=== PATIENT | male | born 1945 | race Caucasian/White ===

== ENCOUNTER 2016-10-24 14:42 | Inpatient (IN) | payer MEDICARE, OTHER ==
[~2016-10-24] VITALS: Ht 175.3 cm; Wt 78.8 kg
[~2016-10-24 14:42] MED LIST: ACET-2247 PO; ACET-66 PO; ASPI81 PO; BENA10TA3 PO; BISA10S PR; DIVA500T52 PO; DSS100 PO; ETAN25I SQ; FISH1CAP27 PO; FOLI1 PO; HYDR-3965 PO; INSNOV SQ; LACT1CAP38 PO; METH2.5 PO; MOM30 PO; ONDA4 PO; OS500 PO; SITA100 PO; TAMS0.4C32 PO; VITAD1000 PO; XALA2.5OS OU; ZOLP5 PO; ZOSY3375FZ IV; [UNRECOGNIZED DRUG - CODE] IV
[2016-10-24 15:01] LABS: GLUCOSE,POINT OF CARE 190 MG/DL (70-110)
[2016-10-24] MEDS ORDERED: ACETAMINOPHEN 500 MG TABLET PO ONE (15:15)
[2016-10-24 15:37] LABS: BASOPHILS % (AUTO) 0.8 % (0.0-2.0); EOSINOPHILS % (AUTO) 0.1 % (1.0-6.0); HEMATOCRIT 36.4 % (41-53); HEMOGLOBIN 12.1 g/dL (13.5-17.5); LYMPHOCYTES # (AUTO) 1.2 K/uL (1.0-4.8); LYMPHOCYTES % (AUTO) 21.3 % (22.0-44.0); MEAN CORPUSCULAR HEMOGLOBIN 29.1 pg (26.0-34.0); MEAN CORPUSCULAR HGB CONC 33.2 G/dL (31.0-37.0); MEAN CORPUSCULAR VOLUME 88 fL (80-100); MONOCYTES # (AUTO) 0.5 K/uL (0.1-1.0); MONOCYTES % (AUTO) 9.4 % (2.0-9.0); NEUTROPHILS % (AUTO) 68.4 % (40.0-70.0); PLATELET COUNT (AUTO) 110 K/uL (150-450); RED BLOOD CELL COUNT(AUTO) 4.15 MIL/uL (4.50-5.90); RED CELL DISTRIBUTION WIDTH 14.7 % (11.5-14.5); WHITE BLOOD COUNT (AUTO) 5.8 K/uL (4.5-11.0)
[2016-10-24 15:44] LABS: ANION GAP 8 mmol/L (8-16); CALCIUM, TOTAL 9.2 mg/dL (8.8-10.5); CARBON DIOXIDE 29 mmol/L (22-29); CHLORIDE 101 mmol/L (98-107); CREATININE 1.51 mg/dL (0.60-1.30); GLOMERULAR FILTR. RATE CALC 46 mL/min (>60); POTASSIUM 4.4 mmol/L (3.5-5.1); SODIUM SERUM 138 mmol/L (136-145); UREA NITROGEN, BLOOD 28 mg/dL (7-18)
[2016-10-24 15:58] LABS: B-TYPE NATRIURETIC PEPTIDE 612 pg/mL (0-100)
[2016-10-24 16:18] LABS: ALANINE AMINOTRANSFERASE 22 U/L (12-78); ALBUMIN 2.8 g/dL (3.4-5.0); ASPARTATE AMINOTRANSFERASE 36 U/L (15-37); BILIRUBIN,TOTAL 0.2 mg/dL (0.1-1.0); CREATINE KINASE MB 3.3 ng/mL (0-5); CREATINE KINASE, TOTAL 236 U/L (39-308); VALPROIC ACID 44 mcg/mL (50-100)
[2016-10-24] MEDS ORDERED: LEVOFLOXACIN 750 MG/D5% WATER 150 ML IV ONE (17:00)
[2016-10-24] MEDS ORDERED: IPRATROPIUM BROMIDE 0.5 MG/2.5 ML NEB SOLUTION NEB ONE (17:00)
[2016-10-24] MEDS ORDERED: ALBUTEROL SULFATE 2.5 MG/0.5 ML NEB SOLUTION NEB ONE (17:00)
[2016-10-24 17:15] LABS: INFLUENZA TYPE B NEGATIVE FOR TYPE B (NEGATIVE)
[2016-10-24 19:54] LABS: APPEARANCE,URINE CLEAR (CLEAR); GLUCOSE, URINE (UA) NEGATIVE (NEGATIVE); KETONES,URINE TRACE mg/dL (NEGATIVE); LEUKOCYTE ESTERASE ,URINE NEGATIVE (NEGATIVE); OCCULT BLOOD,URINE MODERATE (NEGATIVE); PH,URINE 5.5 (5.0-8.0); PROTEIN,URINE NEGATIVE (NEGATIVE)
[2016-10-24 19:57] LABS: ADD UA MICROSCOPIC YES
[2016-10-24 20:13] LABS: SQUAMOUS EPITHELIAL CELL,UR Rare /LPF (None Seen)
[2016-10-24 20:15] LABS: WBC,URINE 0-2 /HPF (0-5)
[2016-10-24 22:46] LABS: GLUCOSE,POINT OF CARE 106 MG/DL (70-110)
[2016-10-24 23:21] VITALS: BP 148/63
[2016-10-25] MEDS ORDERED: ACETAMINOPHEN 325 MG TABLET PO PRN (01:30)
[2016-10-25] MEDS ORDERED: GuaiFENesin/D-METHORPHAN [SUGAR-FREE] 200-20MG/10 ML SYRUP UDCUP PO PRN ×2 (01:30→02:00)
[2016-10-25 04:13] VITALS: BP 136/57
[2016-10-25 07:39] VITALS: BP 121/66
[2016-10-25] MEDS ORDERED: BISACODYL 10 MG RECTAL RECTAL SUPPOSITORY PR PRN (08:45)
[2016-10-25] MEDS ORDERED: [UNRECOGNIZED DRUG - OTHER] SQ SCH (08:45)
[2016-10-25] MEDS ORDERED: MAGNESIUM HYDROXIDE SUSPENSION 30 ML UDCUP PO PRN (08:45)
[2016-10-25] MEDS: ASPIRIN 81 MG CHEWABLE TABLET PO SCH ×2 (09:00→12:59)
[2016-10-25] MEDS ORDERED: METHOTREXATE SODIUM 2.5 MG TABLET PO SCH (09:00)
[2016-10-25] MEDS ORDERED: DIVALPROEX SODIUM 500 MG ER TABLET PO SCH (09:00)
[2016-10-25] MEDS ORDERED: SODIUM CHLORIDE 0.9% 100 ML ONE (09:11)
[2016-10-25] MEDS ORDERED: IOVERSOL 320 MG/ML 100 ML VIAL ONE (09:11)
[2016-10-25] MEDS ORDERED: DEXTROSE 50%-WATER 25 GM/50 ML SYRINGE IVP PRN (10:00)
[2016-10-25] MEDS: SODIUM CHLORIDE 0.9% 1,000 ML IV SCH ×2 (10:44→20:47)
[2016-10-25] MEDS: CefTRIAXone 1 GM/DEXTROSE 50 ML IV SCH (10:44)
[2016-10-25] MEDS: LATANOPROST 0.005% 2.5 ML OPHTHALMIC SOLUTION OU SCH (10:45)
[2016-10-25] MEDS: TAMSULOSIN HCL 0.4 MG CAPSULE PO SCH ×2 (10:45→20:47)
[2016-10-25] MEDS: DOCUSATE SODIUM 100 MG CAPSULE PO SCH ×3 (10:45→20:47)
[2016-10-25] MEDS: FOLIC ACID 1 MG TABLET PO SCH (10:45)
[2016-10-25] MEDS: BENAZEPRIL HCL 10 MG TABLET PO SCH (10:46)
[2016-10-25] MEDS: CALCIUM OYSTER SHELL 500 MG TABLET PO SCH (10:47)
[2016-10-25] MEDS: CHOLECALCIFEROL (VIT D3) 1,000 UNITS TABLET PO SCH (10:47)
[2016-10-25] MEDS: PredniSONE 5 MG TABLET PO SCH (10:47)
[2016-10-25] MEDS: MEMANTINE HCL 10 MG TABLET PO SCH (10:48)
[2016-10-25] MEDS: CLOPIDOGREL BISULFATE 75 MG TABLET PO SCH (10:48)
[2016-10-25 11:20] VITALS: BP 134/60
[2016-10-25] MEDS: AZITHROMYCIN 500 MG/NS 250 ML IV SCH ×2 (11:47→22:02)
[2016-10-25] MEDS: INSULIN ASPART 100 UNITS/ML SQ PRN ×2 (11:48→17:46)
[2016-10-25 14:57] LABS: GLUCOSE COMMENT 1 Received Meds; GLUCOSE,POINT OF CARE 217 MG/DL (70-110)
[2016-10-25 14:57] LABS: GLUCOSE,POINT OF CARE 164 MG/DL (70-110)
[2016-10-25 15:27] VITALS: BP 123/64
[2016-10-25] MEDS ORDERED: CLOP75 PO (15:57)
[2016-10-25] MEDS ORDERED: PRED5 PO (15:57)
[2016-10-25] MEDS ORDERED: ADAL40KI INJ (15:57)
[2016-10-25] MEDS ORDERED: METH2.5T6 PO (15:57)
[2016-10-25] MEDS ORDERED: DONE10TA PO (15:57)
[2016-10-25] MEDS ORDERED: MEMA28CA PO (15:57)
[2016-10-25] MEDS ORDERED: LEVOFLOXACIN 500 MG/D5% WATER 100 ML IV SCH (17:00)
[2016-10-25 19:42] VITALS: BP 136/67
[2016-10-25] MEDS: HYDROCODONE/ACETAMINOPHEN 5-325 MG TABLET PO PRN (20:47)
[2016-10-25] MEDS: DONEPEZIL HCL 5 MG TABLET PO SCH (22:02)
[2016-10-25 23:52] VITALS: BP 137/64
[2016-10-26 04:33] VITALS: BP 132/79
[2016-10-26 05:40] LABS: BASOPHILS # (AUTO) 0.06 K/uL (0.00-0.20); BASOPHILS % (AUTO) 0.8 % (0.0-2.0); EOSINOPHILS # (AUTO) 0.08 K/uL (0.00-0.70); EOSINOPHILS % (AUTO) 1.13 % (1.0-6.0); HEMATOCRIT 34.3 % (41-53); HEMOGLOBIN 11.7 g/dL (13.5-17.5); LYMPHOCYTES # (AUTO) 2.1 K/uL (1.0-4.8); MEAN CORPUSCULAR HEMOGLOBIN 29.6 pg (26.0-34.0); MEAN CORPUSCULAR HGB CONC 34.1 G/dL (31.0-37.0); MEAN CORPUSCULAR VOLUME 87 fL (80-100); MONOCYTES # (AUTO) 0.8 K/uL (0.1-1.0); MONOCYTES % (AUTO) 11.2 % (2.0-9.0); NEUTROPHILS # (AUTO) 4.4 K/uL (1.8-7.7); NEUTROPHILS % (AUTO) 58.9 % (40.0-70.0); PLATELET COUNT (AUTO) 125 K/uL (150-450); RED BLOOD CELL COUNT(AUTO) 3.95 MIL/uL (4.50-5.90); RED CELL DISTRIBUTION WIDTH 14.9 % (11.5-14.5); WHITE BLOOD COUNT (AUTO) 7.5 K/uL (4.5-11.0)
[2016-10-26 05:54] LABS: ALANINE AMINOTRANSFERASE 30 U/L (12-78); ALBUMIN 2.3 g/dL (3.4-5.0); ANION GAP 10 mmol/L (8-16); ASPARTATE AMINOTRANSFERASE 58 U/L (15-37); BILIRUBIN,TOTAL 0.2 mg/dL (0.1-1.0); CARBON DIOXIDE 26 mmol/L (22-29); CHLORIDE 100 mmol/L (98-107); CREATININE 1.08 mg/dL (0.60-1.30); GLOMERULAR FILTR. RATE CALC > 60 mL/min (>60); POTASSIUM 4.2 mmol/L (3.5-5.1); SODIUM SERUM 136 mmol/L (136-145); TOTAL PROTEIN, SERUM 7.1 g/dL (6.4-8.2); UREA NITROGEN, BLOOD 14 mg/dL (7-18)
[2016-10-26] MEDS: SODIUM CHLORIDE 0.9% 1,000 ML IV SCH ×2 (06:10→16:10)
[2016-10-26 07:47] VITALS: BP 154/57
[2016-10-26] MEDS: LATANOPROST 0.005% 2.5 ML OPHTHALMIC SOLUTION OU SCH (08:57)
[2016-10-26] MEDS: CHOLECALCIFEROL (VIT D3) 1,000 UNITS TABLET PO SCH (08:57)
[2016-10-26] MEDS: MEMANTINE HCL 10 MG TABLET PO SCH (08:57)
[2016-10-26] MEDS: DOCUSATE SODIUM 100 MG CAPSULE PO SCH ×3 (08:57→20:32)
[2016-10-26] MEDS: CefTRIAXone 1 GM/DEXTROSE 50 ML IV SCH (08:58)
[2016-10-26] MEDS: FOLIC ACID 1 MG TABLET PO SCH (08:58)
[2016-10-26] MEDS: CLOPIDOGREL BISULFATE 75 MG TABLET PO SCH (08:58)
[2016-10-26] MEDS: CALCIUM OYSTER SHELL 500 MG TABLET PO SCH (08:58)
[2016-10-26] MEDS: ASPIRIN 81 MG CHEWABLE TABLET PO SCH (08:58)
[2016-10-26] MEDS: TAMSULOSIN HCL 0.4 MG CAPSULE PO SCH ×2 (09:12→20:32)
[2016-10-26] MEDS: PredniSONE 5 MG TABLET PO SCH (09:12)
[2016-10-26] MEDS: BENAZEPRIL HCL 10 MG TABLET PO SCH (09:14)
[2016-10-26 11:12] VITALS: BP 143/67
[2016-10-26] MEDS: ACETAMINOPHEN 325 MG TABLET PO PRN ×2 (11:51→17:55)
[2016-10-26] MEDS: INSULIN ASPART 100 UNITS/ML SQ PRN ×3 (11:55→21:59)
[2016-10-26 16:22] VITALS: BP 114/80
[2016-10-26 19:27] VITALS: BP 118/61
[2016-10-26] MEDS: DONEPEZIL HCL 5 MG TABLET PO SCH (20:32)
[2016-10-27] VITALS (7 sets, daily range): BP systolic 114–144; BP diastolic 54–66
[2016-10-27] MEDS: HYDROCODONE/ACETAMINOPHEN 5-325 MG TABLET PO PRN (00:48)
[2016-10-27] MEDS: SODIUM CHLORIDE 0.9% 1,000 ML IV SCH (06:20)
[2016-10-27 07:11] LABS: GLUCOSE,POINT OF CARE 133 MG/DL (70-110)
[2016-10-27] MEDS: TAMSULOSIN HCL 0.4 MG CAPSULE PO SCH ×2 (09:33→20:57)
[2016-10-27] MEDS: CALCIUM OYSTER SHELL 500 MG TABLET PO SCH (09:33)
[2016-10-27] MEDS: DOCUSATE SODIUM 100 MG CAPSULE PO SCH ×3 (09:33→20:57)
[2016-10-27] MEDS: MEMANTINE HCL 10 MG TABLET PO SCH (09:33)
[2016-10-27] MEDS: PredniSONE 5 MG TABLET PO SCH (09:33)
[2016-10-27] MEDS: BENAZEPRIL HCL 10 MG TABLET PO SCH (09:33)
[2016-10-27] MEDS: CHOLECALCIFEROL (VIT D3) 1,000 UNITS TABLET PO SCH (09:33)
[2016-10-27] MEDS: CefTRIAXone 1 GM/DEXTROSE 50 ML IV SCH (09:33)
[2016-10-27] MEDS: CLOPIDOGREL BISULFATE 75 MG TABLET PO SCH (09:34)
[2016-10-27] MEDS: FOLIC ACID 1 MG TABLET PO SCH (09:34)
[2016-10-27] MEDS: ACETAMINOPHEN 325 MG TABLET PO PRN ×2 (09:34→18:06)
[2016-10-27] MEDS: ASPIRIN 81 MG CHEWABLE TABLET PO SCH (09:34)
[2016-10-27] MEDS: LATANOPROST 0.005% 2.5 ML OPHTHALMIC SOLUTION OU SCH (09:35)
[2016-10-27] MEDS ORDERED: FUROSEMIDE 40 MG/4 ML VIAL IVP ONE (10:00)
[2016-10-27] MEDS: AZITHROMYCIN 500 MG/NS 250 ML IV SCH (10:16)
[2016-10-27] MEDS: INSULIN ASPART 100 UNITS/ML SQ PRN ×3 (12:26→20:57)
[2016-10-27] MEDS: DONEPEZIL HCL 5 MG TABLET PO SCH (20:57)
[2016-10-27 21:06] LABS: MYCOPLASMA AB IGG <100 U/mL (0-99)
[2016-10-28 05:14] VITALS: BP 152/64
[2016-10-28] MEDS: ACETAMINOPHEN 325 MG TABLET PO PRN (05:29)
[2016-10-28] MEDS: INSULIN ASPART 100 UNITS/ML SQ PRN ×4 (06:14→21:07)
[2016-10-28 06:26] LABS: GLUCOSE COMMENT 1 Received Meds; GLUCOSE,POINT OF CARE 149 MG/DL (70-110)
[2016-10-28 07:35] VITALS: BP 118/62
[2016-10-28] MEDS: CALCIUM OYSTER SHELL 500 MG TABLET PO SCH (09:30)
[2016-10-28] MEDS: ASPIRIN 81 MG CHEWABLE TABLET PO SCH (09:30)
[2016-10-28] MEDS: FOLIC ACID 1 MG TABLET PO SCH (09:31)
[2016-10-28] MEDS: TAMSULOSIN HCL 0.4 MG CAPSULE PO SCH ×2 (09:31→21:04)
[2016-10-28] MEDS: CHOLECALCIFEROL (VIT D3) 1,000 UNITS TABLET PO SCH (09:31)
[2016-10-28] MEDS: PredniSONE 5 MG TABLET PO SCH (09:31)
[2016-10-28] MEDS: DOCUSATE SODIUM 100 MG CAPSULE PO SCH ×3 (09:31→21:04)
[2016-10-28] MEDS: MEMANTINE HCL 10 MG TABLET PO SCH (09:31)
[2016-10-28] MEDS: BENAZEPRIL HCL 10 MG TABLET PO SCH (09:31)
[2016-10-28] MEDS: CefTRIAXone 1 GM/DEXTROSE 50 ML IV SCH (09:31)
[2016-10-28] MEDS: LATANOPROST 0.005% 2.5 ML OPHTHALMIC SOLUTION OU SCH (09:32)
[2016-10-28] MEDS: CLOPIDOGREL BISULFATE 75 MG TABLET PO SCH (09:43)
[2016-10-28] MEDS: AZITHROMYCIN 500 MG/NS 250 ML IV SCH (11:33)
[2016-10-28] MEDS: HYDROCODONE/ACETAMINOPHEN 5-325 MG TABLET PO PRN ×2 (11:33→21:04)
[2016-10-28 11:42] VITALS: BP 149/65
[2016-10-28 14:34] LABS: ORGANISM ID Not indicated.
[2016-10-28 16:21] VITALS: BP 129/61
[2016-10-28] MEDS: ACETAMINOPHEN 500 MG TABLET PO PRN (16:25)
[2016-10-28 18:16] LABS: GLUCOSE COMMENT 1 Received Meds; GLUCOSE,POINT OF CARE 191 MG/DL (70-110)
[2016-10-28 18:17] LABS: GLUCOSE COMMENT 1 Received Meds; GLUCOSE,POINT OF CARE 216 MG/DL (70-110)
[2016-10-28 18:17] LABS: GLUCOSE COMMENT 1 Received Meds; GLUCOSE,POINT OF CARE 143 MG/DL (70-110)
[2016-10-28 18:17] LABS: GLUCOSE COMMENT 1 Received Meds; GLUCOSE,POINT OF CARE 179 MG/DL (70-110)
[2016-10-28 18:17] LABS: GLUCOSE,POINT OF CARE 151 MG/DL (70-110)
[2016-10-28 18:17] LABS: GLUCOSE COMMENT 1 Received Meds; GLUCOSE,POINT OF CARE 168 MG/DL (70-110)
[2016-10-28 18:17] LABS: GLUCOSE COMMENT 1 Received Meds; GLUCOSE,POINT OF CARE 145 MG/DL (70-110)
[2016-10-28 18:17] LABS: GLUCOSE,POINT OF CARE 159 MG/DL (70-110)
[2016-10-28 19:22] VITALS: BP 111/56
[2016-10-28] MEDS: DONEPEZIL HCL 5 MG TABLET PO SCH (21:04)
[2016-10-28] MEDS: ZOLPIDEM TARTRATE 5 MG TABLET PO PRN (21:04)
[2016-10-28 23:48] VITALS: BP 136/70
[2016-10-29 04:36] VITALS: BP 127/61
[2016-10-29] MEDS: ACETAMINOPHEN 325 MG TABLET PO PRN (04:50)
[2016-10-29] MEDS: INSULIN ASPART 100 UNITS/ML SQ PRN ×4 (06:48→21:12)
[2016-10-29 08:00] VITALS: BP 112/64
[2016-10-29] MEDS: CALCIUM OYSTER SHELL 500 MG TABLET PO SCH (08:53)
[2016-10-29] MEDS: TAMSULOSIN HCL 0.4 MG CAPSULE PO SCH ×2 (08:53→21:05)
[2016-10-29] MEDS: MEMANTINE HCL 10 MG TABLET PO SCH (08:53)
[2016-10-29] MEDS: CefTRIAXone 1 GM/DEXTROSE 50 ML IV SCH (08:53)
[2016-10-29] MEDS: DOCUSATE SODIUM 100 MG CAPSULE PO SCH ×3 (08:53→21:05)
[2016-10-29] MEDS: PredniSONE 5 MG TABLET PO SCH (08:53)
[2016-10-29] MEDS: CHOLECALCIFEROL (VIT D3) 1,000 UNITS TABLET PO SCH (08:53)
[2016-10-29] MEDS: FOLIC ACID 1 MG TABLET PO SCH (08:53)
[2016-10-29] MEDS: ASPIRIN 81 MG CHEWABLE TABLET PO SCH (08:53)
[2016-10-29] MEDS: CLOPIDOGREL BISULFATE 75 MG TABLET PO SCH (08:53)
[2016-10-29] MEDS: LATANOPROST 0.005% 2.5 ML OPHTHALMIC SOLUTION OU SCH (08:54)
[2016-10-29] MEDS: BENAZEPRIL HCL 10 MG TABLET PO SCH (09:00)
[2016-10-29] MEDS: AZITHROMYCIN 500 MG/NS 250 ML IV SCH (11:50)
[2016-10-29 11:51] VITALS: BP 113/66
[2016-10-29] MEDS: ACETAMINOPHEN 500 MG TABLET PO PRN (16:22)
[2016-10-29 17:05] VITALS: BP 112/82
[2016-10-29 19:01] LABS: APPEARANCE,URINE CLEAR (CLEAR); GLUCOSE, URINE (UA) 500 mg/dL (NEGATIVE); KETONES,URINE NEGATIVE (NEGATIVE); LEUKOCYTE ESTERASE ,URINE NEGATIVE (NEGATIVE); OCCULT BLOOD,URINE NEGATIVE (NEGATIVE); PH,URINE 6.5 (5.0-8.0); PROTEIN,URINE POS 1+ (NEGATIVE)
[2016-10-29 19:09] LABS: ADD UA MICROSCOPIC YES
[2016-10-29 19:14] LABS: RBC,URINE 0-2 /HPF (0-2); SQUAMOUS EPITHELIAL CELL,UR Few /LPF (None Seen); WBC,URINE 0-2 /HPF (0-5)
[2016-10-29 19:29] VITALS: BP 121/61
[2016-10-29] MEDS: DONEPEZIL HCL 5 MG TABLET PO SCH (21:05)
[2016-10-29] MEDS: OSELTAMIVIR PHOSPHATE 75 MG CAPSULE PO SCH (21:05)
[2016-10-29] MEDS: ZOLPIDEM TARTRATE 5 MG TABLET PO PRN (21:08)
[2016-10-29 23:30] VITALS: BP 155/75
[2016-10-30 03:53] VITALS: BP 139/65
[2016-10-30] MEDS: INSULIN ASPART 100 UNITS/ML SQ PRN ×2 (06:32→11:55)
[2016-10-30 06:42] LABS: GLUCOSE COMMENT 1 Received Meds; GLUCOSE,POINT OF CARE 174 MG/DL (70-110)
[2016-10-30 06:42] LABS: GLUCOSE COMMENT 1 Received Meds; GLUCOSE,POINT OF CARE 224 MG/DL (70-110)
[2016-10-30 06:42] LABS: GLUCOSE COMMENT 1 Received Meds; GLUCOSE,POINT OF CARE 194 MG/DL (70-110)
[2016-10-30 06:42] LABS: GLUCOSE COMMENT 1 Received Meds; GLUCOSE,POINT OF CARE 169 MG/DL (70-110)
[2016-10-30 06:42] LABS: GLUCOSE,POINT OF CARE 189 MG/DL (70-110)
[2016-10-30 06:43] LABS: GLUCOSE COMMENT 1 Received Meds; GLUCOSE,POINT OF CARE 184 MG/DL (70-110)
[2016-10-30 06:43] LABS: GLUCOSE COMMENT 1 Received Meds; GLUCOSE,POINT OF CARE 188 MG/DL (70-110)
[2016-10-30 07:32] VITALS: BP 118/58
[2016-10-30 08:09] LABS: BASOPHILS % (AUTO) 0.1 % (0.0-2.0); EOSINOPHILS % (AUTO) 1.7 % (1.0-6.0); LYMPHOCYTES # (AUTO) 1.7 K/uL (1.0-4.8); LYMPHOCYTES % (AUTO) 20.6 % (22.0-44.0); MEAN CORPUSCULAR HEMOGLOBIN 28.5 pg (26.0-34.0); MEAN CORPUSCULAR HGB CONC 32.4 G/dL (31.0-37.0); MEAN CORPUSCULAR VOLUME 88 fL (80-100); NEUTROPHILS # (AUTO) 5.5 K/uL (1.8-7.7); NEUTROPHILS % (AUTO) 65.6 % (40.0-70.0); PLATELET COUNT (AUTO) 214 K/uL (150-450); RED BLOOD CELL COUNT(AUTO) 3.52 MIL/uL (4.50-5.90); RED CELL DISTRIBUTION WIDTH 14.6 % (11.5-14.5); WHITE BLOOD COUNT (AUTO) 8.4 K/uL (4.5-11.0)
[2016-10-30] MEDS: CALCIUM OYSTER SHELL 500 MG TABLET PO SCH (08:47)
[2016-10-30] MEDS: BENAZEPRIL HCL 10 MG TABLET PO SCH (08:47)
[2016-10-30] MEDS: CLOPIDOGREL BISULFATE 75 MG TABLET PO SCH (08:47)
[2016-10-30] MEDS: CHOLECALCIFEROL (VIT D3) 1,000 UNITS TABLET PO SCH (08:47)
[2016-10-30] MEDS: FOLIC ACID 1 MG TABLET PO SCH (08:47)
[2016-10-30] MEDS: CefTRIAXone 1 GM/DEXTROSE 50 ML IV SCH (08:47)
[2016-10-30] MEDS: TAMSULOSIN HCL 0.4 MG CAPSULE PO SCH (08:48)
[2016-10-30] MEDS: MEMANTINE HCL 10 MG TABLET PO SCH (08:48)
[2016-10-30] MEDS: ASPIRIN 81 MG CHEWABLE TABLET PO SCH (08:48)
[2016-10-30] MEDS: DOCUSATE SODIUM 100 MG CAPSULE PO SCH (08:48)
[2016-10-30] MEDS: OSELTAMIVIR PHOSPHATE 75 MG CAPSULE PO SCH (08:48)
[2016-10-30] MEDS: PredniSONE 5 MG TABLET PO SCH (08:48)
[2016-10-30] MEDS: LATANOPROST 0.005% 2.5 ML OPHTHALMIC SOLUTION OU SCH (08:49)
[2016-10-30 08:50] LABS: ANION GAP 8 mmol/L (8-16); CALCIUM, TOTAL 8.1 mg/dL (8.8-10.5); CARBON DIOXIDE 26 mmol/L (22-29); CHLORIDE 101 mmol/L (98-107); CREATININE 0.87 mg/dL (0.60-1.30); GLOMERULAR FILTR. RATE CALC > 60 mL/min (>60); POTASSIUM 3.6 mmol/L (3.5-5.1); SODIUM SERUM 135 mmol/L (136-145); UREA NITROGEN, BLOOD 15 mg/dL (7-18)
[2016-10-30 09:19] LABS: PROCALCITONIN (PCT) 0.05 ng/mL (<0.50)
[2016-10-30 10:35] VITALS: BP 124/54
[2016-10-30] MEDS: AZITHROMYCIN 500 MG/NS 250 ML IV SCH (10:36)
[2016-10-30] MEDS: ACETAMINOPHEN 500 MG TABLET PO PRN (16:00)
[2016-10-30 17:52] LABS: GLUCOSE COMMENT 1 Received Meds; GLUCOSE,POINT OF CARE 228 MG/DL (70-110)
[2016-10-30 17:53] LABS: GLUCOSE COMMENT 1 Received Meds; GLUCOSE,POINT OF CARE 171 MG/DL (70-110)
[2016-10-30 18:01] LABS: GLUCOSE COMMENT 1 Received Meds; GLUCOSE,POINT OF CARE 190 MG/DL (70-110)
[2016-11-01] MEDS ORDERED: METHOTREXATE SODIUM 2.5 MG TABLET PO SCH (09:00)
== END 2016-10-30 16:05 | disposition home or self-care (01) | DRG 193 ==
LOC: EMS 14:44 → 5S 21:43 → 5N 10-25 11:54
PROVIDERS: ADMIT Internal Medicine; ATTEND Internal Medicine
DX: J18.9 Pneumonia, unspecified organism (principal); E43 Unspecified severe protein-calorie malnutrition; N17.0 Acute kidney failure with tubular necrosis; E11.9 Type 2 diabetes mellitus without complications; E86.0 Dehydration; I25.10 Atherosclerotic heart disease of native coronary artery without angina pectoris; M06.9 Rheumatoid arthritis, unspecified; D63.8 Anemia in other chronic diseases classified elsewhere; D69.6 Thrombocytopenia, unspecified; E78.5 Hyperlipidemia, unspecified; I44.7 Left bundle-branch block, unspecified; I50.9 Heart failure, unspecified; I11.0 Hypertensive heart disease with heart failure; N40.0 Benign prostatic hyperplasia without lower urinary tract symptoms; Z68.25 Body mass index [BMI] 25.0-25.9, adult; Z79.4 Long term (current) use of insulin; Z79.82 Long term (current) use of aspirin; Z79.899 Other long term (current) drug therapy; Z95.0 Presence of cardiac pacemaker; Z96.659 Presence of unspecified artificial knee joint; Z98.890 Other specified postprocedural states; Z87.891 Personal history of nicotine dependence
CPT/HCPCS: 71020; 71260; 82962; 84145; 86403; 86480; 86635; 87015; 87040; 87070; 87205; 87449; 87798; 87804; 87899; 93005; 93306; 93970; 94640; 96365; 99285; J0456; J0696; J1940; J1956; J7030; J7050; J8610